=== PATIENT | male | born 1960 | race Caucasian/White ===

== ENCOUNTER 2019-04-17 17:36 | Emergency (ER) | payer SELFPAY ==
[~2019-04-17] VITALS: Ht 175.3 cm; Wt 85.0 kg
[2019-04-17] MEDS ORDERED: TETANUS, DIPHTHERIA, PERTUSSIS VAC/PF 0.5ML (>7YR OLD) IM ONE (19:30)
[2019-04-17] MEDS ORDERED: KETOROLAC 60MG/2ML VIAL IM ONE (19:30)
[2019-04-17 21:18] VITALS: BP 135/81
== END 2019-04-17 21:19 | disposition home or self-care (01) ==
LOC: ER 17:36
DX: E04.1 Nontoxic single thyroid nodule (principal); M54.2 Cervicalgia; E11.9 Type 2 diabetes mellitus without complications; I10 Essential (primary) hypertension; S61.412A Laceration without foreign body of left hand, initial encounter; V43.52XA Car driver injured in collision with other type car in traffic accident, initial encounter; Y93.89 Activity, other specified; Y92.488 Other paved roadways as the place of occurrence of the external cause
CPT/HCPCS: 70450; 72125; 90471; 90715; 96372; 99284; J1885